=== PATIENT | female | born 1955 | race African-American/Black ===

== ENCOUNTER 2017-03-01 19:17 | Emergency (ER) | payer OTHER ==
[~2017-03-01] VITALS: Ht 172.7 cm; Wt 78.5 kg
[2017-03-01 19:20] VITALS: BP 167/80
[2017-03-01] MEDS ORDERED: IBUPROFEN 600 MG TAB PO ONE (23:15)
== END 2017-03-01 23:27 | disposition home or self-care (01) ==
LOC: EDBD 19:41 → ER 19:41
DX: S02.2XXA Fracture of nasal bones, initial encounter for closed fracture (principal); S00.03XA Contusion of scalp, initial encounter; E11.9 Type 2 diabetes mellitus without complications; I10 Essential (primary) hypertension; Y09 Assault by unspecified means; Y93.89 Activity, other specified; Y99.8 Other external cause status; Y92.89 Other specified places as the place of occurrence of the external cause
CPT/HCPCS: 70450; 70480